=== PATIENT | female | born 1960 | race Hispanic/Latino ===

== ENCOUNTER 2019-08-31 19:04 | Emergency (ER) | payer BC, SELFPAY ==
[2019-08-31] MEDS ORDERED: SODIUM CHLORIDE 0.9% 1000ML 1,000 ML IVS ONE (19:22)
[2019-08-31] MEDS ORDERED: METOCLOPRAMIDE HCL INJ 10 MG/2 ML VIAL IV ONE (19:22)
[2019-08-31] MEDS ORDERED: KETOROLAC TROMETHAMINE INJ 30 MG/ML VIAL IV ONE (19:22)
[2019-08-31] MEDS ORDERED: diphenhydrAMINE HCL 50 MG/ML VIAL IV ONE (19:23)
[2019-08-31 19:43] VITALS: O2SAT 97
--- NOTE | 2019-08-31 20:00 | CT ---
EXAM DESCRIPTION: Head CLINICAL HISTORY: 59 years Female headache, reported right arm weakness COMPARISON: None TECHNIQUE: Images were obtained in axial, sagittal, and coronal planes. This exam was performed according to our departmental dose-optimization program which includes use of Automated Exposure Control, adjustment of the mA and/or kV according to patient size and/or use of iterative reconstruction technique. FINDINGS: Ventricular system appears normal. No abnormal areas of increased or decreased attenuation are seen involving the brain parenchyma. No extra-axial fluid collections noted. No evidence for skull fracture. Symmetric aeration mastoid air cells bilaterally. Mild mucosal thickening ethmoid sinuses bilaterally. IMPRESSION: No acute intracranial abnormality. No evidence for hemorrhage, mass lesion, or large acute infarction. Electronically signed by: Jillian Madrigal MD 08/31/2019 7:58 PM CDT
[2019-08-31] MEDS ORDERED: POTASSIUM CHLORIDE 20 MEQ TAB PO ONE (20:08)
--- NOTE | 2019-08-31 20:19 | ED.PDOC ---
History of Present Illness - General Chief Complaint: Blood Pressure Problem Stated Complaint: headache, eleated BP Time Seen by Provider: 08/31/19 19:14 Source: patient, RN notes reviewed, Vital Signs reviewed, family Exam Limitations: language barrier Additional Information: Family and RN assisted with Portuguese translation for the history - History of Present Illness Initial Comments: This is a 59-year-old female with history of hypertension, on losartan, longstanding history of migraines, presenting to the emergency department today with headache and elevated blood pressure. She states she woke up this morning with a mild migraine type headache, which is progressively worsened over the past 2 to 3 hours. She states the pain is primarily in the occipital area but radiates to the front. She states this is typical of her previous migraines. When the headache began to worsen, she took her Topamax, but states this made her headache worse and caused her blood pressure to go up. SBP at home was in the 180s. BP in the emergency department is 179/98.She reports she had some very mild chest pain earlier in the day, but states this is completely gone. No shortness of breath, no vomiting. She states her "right arm felt a little heavy earlier in the day". She denies any weakness/numbness/tingling at this time. No vision changes. She denies any recent trauma, recent illnesses, or sick contacts. Allergies/Adverse Reactions: Allergies NO KNOWN ALLERGY Allergy (Verified 09/20/15 20:30) Home Medications: Ambulatory Orders Citalopram Hydrobromide [CeleXA] 20 mg PO DAILY 09/20/15 Lisinopril 2.5 mg PO DAILY 09/20/15 Prednisone [Deltasone] 20 mg PO DAILY #10 tab 09/20/15 Tramadol HCl 50 mg PO Q6H PRN #30 tab 09/20/15 Zolpidem Tartrate 5 mg PO BEDTIME 09/20/15 Cefuroxime Axetil [Ceftin] 500 mg PO BID #20 tab 09/22/15 Review of Systems - Review of Systems Constitutional: Denies: chills, fever EENTM: Denies: eye pain, blurred vision, double vision, nose congestion, throat pain Respiratory: Denies: cough, short of breath Cardiology: Denies: chest pain, edema Genitourinary: Denies: dysuria, hematuria Musculoskeletal: Denies: back pain, joint pain, muscle stiffness, neck pain Neurological: States: headache. Denies: numbness, paresthesia, pre-existing deficit, seizure Endocrine: States: no symptoms reported Hematologic/Lymphatic: States: no symptoms reported Past Medical History (General) - Patient Medical History Hx Hypertension: Yes Surgical History: no surgical history - Vaccination History Hx Tetanus, Diphtheria Vaccination: No Hx Influenza Vaccination: No Hx Pneumococcal Vaccination: No Immunizations Up to Date: No - Social History Hx Tobacco Use: No Hx Alcohol Use: No Hx Substance Use: No Hx Substance Use Treatment: No Hx Depression: No - Female History Patient : No Family Medical History - Family History Mother Family History: Unknown Physical Exam - Physical Exam General Appearance: Alert, Comfortable, No apparent distress Eye Exam: bilateral normal Ears, Nose, Throat: hearing grossly normal, normal ENT inspection, normal pharynx Neck: non-tender, full range of motion, supple, normal inspection Respiratory: lungs clear, normal breath sounds, no respiratory distress, no accessory muscle use, respiratory distress Cardiovascular/Chest: normal peripheral pulses, regular rate, rhythm, no edema, no gallop, no JVD, no murmur Peripheral Pulses: radial,right: 2+, radial,left: 2+ Gastrointestinal/Abdominal: non tender, soft Back Exam: normal inspection, no vertebral tenderness Extremity: normal range of motion, non-tender, normal inspection, no pedal edema 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 Skin Exam: normal color, warm/dry Progress - Progress Progress: 08/31/19 20:22 Rechecked. BP down to 160/80. Headache is completely resolved. Patient feels much better and wants to go home. With BP improving with headache resolution, I suspect this is likely reactive hypertension. Will defer any medication changes at this time. I recommended to patient and family that she check twice daily BPs and keep a log for PCP, follow-up next week for recheck to discuss any further medication changes based on BP trends. MDM: DDX: Migraine, low suspicion for subarachnoid, reactive versus accelerated hypertension, low suspicion for malignant hypertension Patient presenting with gradual onset headache that began this morning when she awoke, became worse this afternoon after she took her home Topamax. She repo rted "heaviness" in her right arm earlier in the day, neuro exam today is nonfocal. CT head is negative. Headache completely resolved with Toradol, Reglan. She states the headache is typical of her previous migraines, but states the worsening this afternoon was somewhat atypical. I strongly feel this is a variant of her chronic migraines, and I have a very low suspicion for subarachnoid hemorrhage at this time. Will defer LP. Manjinder Grubbs DO #[id number] - Results/Orders Results/Orders: 08/31/19 19:22 Sodium Chloride 0.9% 1000ML [Ns 1000 ml] 1,000 ml IVS ONCE Laboratory Results - last 24 hr 08/31/19 08/31/19 19:27 19:27 WBC 7.0 RBC 4.51 Hgb 13.8 Hct 40.6 MCV 90.2 MCH 30.7 MCHC 34.1 RDW 14.5 Plt Count 223 MPV 8.1 Absolute Neuts (auto) 4.50 Absolute Lymphs (auto) 1.80 Absolute Monos (auto) 0.40 Absolute Eos (auto) 0.20 Absolute Basos (auto) 0.10 Neutrophils % 65.2 Lymphocytes % 26.3 Monocytes % 5.4 Eosinophils % 2.2 Basophils % 0.9 Sodium 131 L Potassium 3.3 L Chloride 99 L Carbon Dioxide 23 Anion Gap 12.3 BUN 18 Creatinine 0.71 BUN/Creatinine Ratio 25.4 H Random Glucose 121 H Serum Osmolality 265.8 L Calcium 9.2 EXAM DESCRIPTION: Head CLINICAL HISTORY: 59 years Female headache, reported right arm weakness COMPARISON: None TECHNIQUE: Images were obtained in axial, sagittal, and coronal planes. This exam was performed according to our departmental dose-opti mization program which includes use of Automated Exposure Control, adjustment of the mA and/or kV according to patient size and/or use of iterative reconstruction technique. FINDINGS: Ventricular system appears normal. No abnormal areas of increased or decreased attenuation are seen involving the brain parenchyma. No extra-axial fluid collections noted. No evidence for skull fracture. Symmetric aeration mastoid air cells bilaterally. Mild mucosal thickening ethmoid sinuses bilaterally. IMPRESSION: No acute intracranial abnormality. No evidence for hemorrhage, mass lesion, or large acute infarction. Electronically signed by: Jillian Madrigal MD 08/31/2019 7:58 PM CDT - EKG/XRAY/CT XRAY: abdomen Departure - Departure Clinical Impression: Reactive hypertension Migraine Qualifiers: Migraine type: without aura Status migrainosus presence: without status migrainosus Intractability: not intractable Qualified Code(s): G43.009 - Migraine without aura, not intractable, without status migrainosus Disposition: Discharge to Home or Self Care Condition: Good Departure Forms: ED Discharge - Pt. Copy, Patient Portal Self Enrollment Instructions: DI for High Blood Pressure, Migraines (DC) Home Medications: Ambulatory Orders Citalopram Hydrobromide [CeleXA] 20 mg PO DAILY 09/20/15 Lisinopril 2.5 mg PO DAILY 09/20/15 Prednisone [Deltasone] 20 mg PO DAILY #10 tab 09/20/15 Tramadol HCl 50 mg PO Q6H PRN #30 tab 09/20/15 Zolpidem Tartrate 5 mg PO BEDTIME 09/20/15 Cefuroxime Axetil [Ceftin] 500 mg PO BID #20 tab 09/22/15 Additional Instructions: Check BPs twice daily, once in the morning, once at night. Keep a log for your primary care doctor and follow-up with them next week. Return immediately for worsening headache, weakness/numbness/tingling, intractable vomiting, fever, or any other concerns Print Language: Portuguese
[2019-08-31 20:45] VITALS: BP 124/72; TEMP 97.9
== END 2019-08-31 20:44 | disposition home or self-care (01) ==
LOC: ER 19:04
DX: G43.009 Migraine without aura, not intractable, without status migrainosus (principal); I10 Essential (primary) hypertension; Z79.899 Other long term (current) drug therapy
CPT/HCPCS: 36415; 70450; 80048; 85025; J1200; J1885; J2765; J7030